=== PATIENT | male | born 1965 | race African-American/Black ===

== ENCOUNTER 2016-07-17 14:06 | Inpatient (IN) | payer OTHER ==
[2016-07-17 17:21] VITALS: BMI 32.5
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
[2016-07-17] MEDS ORDERED: ACETAMINOPHEN 325 MG TABLET (FP) PO PRN (20:25)
[2016-07-17] MEDS ORDERED: hydrOXYzine PAMOATE 50 MG CAPSULE (FP) PO PRN (20:25)
[2016-07-17] MEDS ORDERED: MAGNESIUM CITRATE 300 ML BOTTLE PO PRN (20:25)
[2016-07-17] MEDS ORDERED: LOPERAMIDE HCL 2 MG CAPSULE PO PRN (20:25)
[2016-07-17] MEDS ORDERED: IBUPROFEN 400 MG TABLET (FP) PO PRN (20:25)
[2016-07-17] MEDS ORDERED: MAG HYDROX/AL HYDROX/SIMETH 30 ML UNIT-DOSE CUP PO PRN (20:25)
[2016-07-17] MEDS: THIAMINE HCL 100 MG TABLET (FP) PO SCH (23:47)
[2016-07-18 01:53] LABS: URINE APPEARANCE CLEAR; URINE BILIRUBIN NEGATIVE (NEGATIVE); URINE BLOOD NEGATIVE (NEGATIVE); URINE COLOR LTYELLOW; URINE GLUCOSE (UA) NEGATIVE (NEGATIVE); URINE KETONE NEGATIVE (NEGATIVE); URINE LEUK ESTERASE NEGATIVE (NEGATIVE); URINE NITRITE NEGATIVE (NEGATIVE); URINE PROTEIN NEGATIVE (NEGATIVE); URINE UROBILINOGEN NEGATIVE E.U./dl (0.2-1.0)
[2016-07-18] MEDS: PRENATAL VITAMINS W/ FOLIC ACID TABLET (FP) PO SCH (10:11)
[2016-07-18] MEDS: NICOTINE 21 MG/24 HOURS TOPICAL PATCH TD SCH (10:11)
[2016-07-18 10:40] LABS: MCHC 34.2 g/dl (32.0-35.9); MEAN CELL VOLUME 96.4 fl (80-96); MEAN PLT VOLUME 8.4 fl (7.5-11.1); PLATELET COUNT 212 K/MM3 (134-434); RDW 14.2 % (11.9-15.9); WHITE BLOOD COUNT 7.6 K/mm3 (4.0-10.0)
[2016-07-18 11:09] LABS: ALBUMIN 3.6 g/dl (3.4-5.0); ALK PHOS 99 U/L (45-117); ANION GAP 9 (8-16); BILIRUBIN,TOTAL 0.6 mg/dL (0.2-1.0); CALCIUM 9.4 mg/dL (8.5-10.1); CO2 25 mmol/L (21-32); COCKROFT - GAULT 170.34; CREATININE 0.7 mg/dL (0.7-1.3); GLUCOSE,RANDOM 96 mg/dL (74-106); SGOT/AST 19 U/L (15-37); SGPT/ALT 33 U/L (12-78); TOT PROT 6.9 g/dl (6.4-8.2)
[2016-07-18 15:08] LABS: HIV 1 & 2 AB NEGATIVE; HIV 1 AGp24 NEGATIVE
[2016-07-18] MEDS: IBUPROFEN 400 MG TABLET (FP) PO PRN (20:14)
[2016-07-18] MEDS: diphenhydrAMINE HCL 50 MG CAPSULE PO PRN (21:29)
[2016-07-18] MEDS: THIAMINE HCL 100 MG TABLET (FP) PO SCH (21:29)
[2016-07-19] MEDS: IBUPROFEN 400 MG TABLET (FP) PO PRN ×2 (10:21→21:47)
[2016-07-19] MEDS: PRENATAL VITAMINS W/ FOLIC ACID TABLET (FP) PO SCH (10:22)
[2016-07-19] MEDS: NICOTINE 21 MG/24 HOURS TOPICAL PATCH TD SCH (10:23)
[2016-07-19] MEDS: THIAMINE HCL 100 MG TABLET (FP) PO SCH (21:47)
[2016-07-19] MEDS: diphenhydrAMINE HCL 50 MG CAPSULE PO PRN (21:48)
[2016-07-20] MEDS: PRENATAL VITAMINS W/ FOLIC ACID TABLET (FP) PO SCH (10:17)
[2016-07-20] MEDS: NICOTINE 21 MG/24 HOURS TOPICAL PATCH TD SCH (10:18)
[2016-07-20] MEDS: IBUPROFEN 400 MG TABLET (FP) PO PRN ×2 (10:19→22:00)
--- NOTE | 2016-07-20 11:30 | EKG ---
Test Reason : Blood Pressure : / mmHG Vent. Rate : 063 BPM Atrial Rate : 063 BPM P-R Int : 142 ms QRS Dur : 082 ms QT Int : 412 ms P-R-T Axes : 032 052 035 degrees QTc Int : 421 ms NORMAL SINUS RHYTHM NORMAL ECG NO PREVIOUS ECGS AVAILABLE Confirmed by BORA ROQUE MD ([id number]) on 07/20/2016 11:29:42 AM Referred By: Macarena De La O Confirmed By:BORA ROQUE MD
[2016-07-20] MEDS: THIAMINE HCL 100 MG TABLET (FP) PO SCH (21:59)
[2016-07-20] MEDS: diphenhydrAMINE HCL 50 MG CAPSULE PO PRN (21:59)
[2016-07-21] MEDS: NICOTINE 21 MG/24 HOURS TOPICAL PATCH TD SCH (10:33)
[2016-07-21] MEDS: PRENATAL VITAMINS W/ FOLIC ACID TABLET (FP) PO SCH (10:34)
[2016-07-21] MEDS: IBUPROFEN 400 MG TABLET (FP) PO PRN ×2 (10:35→21:48)
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
[2016-07-21] MEDS ORDERED: COLLOIDAL OATMEAL 1 BAR EACH TP PRN (11:53)
[2016-07-21] MEDS: THIAMINE HCL 100 MG TABLET (FP) PO SCH (21:46)
[2016-07-21] MEDS: diphenhydrAMINE HCL 50 MG CAPSULE PO PRN (21:47)
[2016-07-22] MEDS: PRENATAL VITAMINS W/ FOLIC ACID TABLET (FP) PO SCH (10:17)
[2016-07-22] MEDS: NICOTINE 21 MG/24 HOURS TOPICAL PATCH TD SCH (10:17)
[2016-07-22] MEDS: THIAMINE HCL 100 MG TABLET (FP) PO SCH (21:47)
[2016-07-22] MEDS: diphenhydrAMINE HCL 50 MG CAPSULE PO PRN (21:47)
[2016-07-22] MEDS: IBUPROFEN 400 MG TABLET (FP) PO PRN (21:48)
[2016-07-23] MEDS: PRENATAL VITAMINS W/ FOLIC ACID TABLET (FP) PO SCH (10:31)
[2016-07-23] MEDS: NICOTINE POLACRILEX 2 MG GUM BC PRN ×3 (10:31→21:52)
[2016-07-23] MEDS: IBUPROFEN 400 MG TABLET (FP) PO PRN ×2 (10:31→21:51)
[2016-07-23] MEDS: NICOTINE 21 MG/24 HOURS TOPICAL PATCH TD SCH (10:31)
[2016-07-23] MEDS: THIAMINE HCL 100 MG TABLET (FP) PO SCH (21:51)
[2016-07-23] MEDS: diphenhydrAMINE HCL 50 MG CAPSULE PO PRN (21:51)
[2016-07-24] MEDS: NICOTINE 21 MG/24 HOURS TOPICAL PATCH TD SCH (10:38)
[2016-07-24] MEDS: IBUPROFEN 400 MG TABLET (FP) PO PRN ×2 (10:38→21:57)
[2016-07-24] MEDS: PRENATAL VITAMINS W/ FOLIC ACID TABLET (FP) PO SCH (10:38)
[2016-07-24] MEDS: NICOTINE POLACRILEX 2 MG GUM BC PRN ×2 (10:39→21:59)
[2016-07-24] MEDS: THIAMINE HCL 100 MG TABLET (FP) PO SCH (21:56)
[2016-07-24] MEDS: diphenhydrAMINE HCL 50 MG CAPSULE PO PRN (21:56)
[2016-07-25] MEDS: MENTHOL/PHENOL 1 EACH UD MM PRN (04:15)
[2016-07-25] MEDS: IBUPROFEN 400 MG TABLET (FP) PO PRN ×2 (06:52→21:59)
[2016-07-25] MEDS: NICOTINE 21 MG/24 HOURS TOPICAL PATCH TD SCH (10:25)
[2016-07-25] MEDS: PRENATAL VITAMINS W/ FOLIC ACID TABLET (FP) PO SCH (10:25)
[2016-07-25] MEDS: diphenhydrAMINE HCL 50 MG CAPSULE PO PRN (21:58)
[2016-07-25] MEDS: THIAMINE HCL 100 MG TABLET (FP) PO SCH (21:58)
[2016-07-25] MEDS: NICOTINE POLACRILEX 2 MG GUM BC PRN (22:00)
[2016-07-26] MEDS: NICOTINE POLACRILEX 2 MG GUM BC PRN (06:03)
[2016-07-26] MEDS: IBUPROFEN 400 MG TABLET (FP) PO PRN (06:04)
[2016-07-26] MEDS: NICOTINE 21 MG/24 HOURS TOPICAL PATCH TD SCH (10:20)
[2016-07-26] MEDS: PRENATAL VITAMINS W/ FOLIC ACID TABLET (FP) PO SCH (10:20)
[2016-07-26] MEDS: THIAMINE HCL 100 MG TABLET (FP) PO SCH (21:57)
[2016-07-26] MEDS: diphenhydrAMINE HCL 50 MG CAPSULE PO PRN (21:57)
[2016-07-26] MEDS: MENTHOL/PHENOL 1 EACH UD MM PRN (23:37)
[2016-07-26] MEDS: P-EPHED 60MG/TRIPROLIDI 2.5MG TABLET PO PRN (23:46)
[2016-07-26] MEDS: guaiFENesin/D-METHORPHAN HB 10 ML UNIT-DOSE CUPS PO PRN (23:47)
[2016-07-27] MEDS: PRENATAL VITAMINS W/ FOLIC ACID TABLET (FP) PO SCH (10:29)
[2016-07-27] MEDS: NICOTINE 21 MG/24 HOURS TOPICAL PATCH TD SCH (10:29)
[2016-07-27] MEDS: NICOTINE POLACRILEX 2 MG GUM BC PRN ×2 (10:30→22:01)
[2016-07-27] MEDS: IBUPROFEN 400 MG TABLET (FP) PO PRN ×2 (10:30→21:58)
--- NOTE | 2016-07-27 10:57 | PN ---
[facility] Progress Note Note: edema both leg ad feet,no sob,no dizziness,no headache,lasiz 40 mgs po daily for 3 days
[2016-07-27] MEDS: FUROSEMIDE 40 MG TABLET (FP) PO SCH (12:10)
[2016-07-27] MEDS: guaiFENesin/D-METHORPHAN HB 10 ML UNIT-DOSE CUPS PO PRN ×2 (13:10→21:59)
[2016-07-27] MEDS: THIAMINE HCL 100 MG TABLET (FP) PO SCH (21:58)
[2016-07-27] MEDS: diphenhydrAMINE HCL 50 MG CAPSULE PO PRN (21:59)
[2016-07-27] MEDS: P-EPHED 60MG/TRIPROLIDI 2.5MG TABLET PO PRN (21:59)
[2016-07-28] MEDS: guaiFENesin/D-METHORPHAN HB 10 ML UNIT-DOSE CUPS PO PRN (04:20)
[2016-07-28] MEDS: P-EPHED 60MG/TRIPROLIDI 2.5MG TABLET PO PRN (05:25)
[2016-07-28] MEDS: IBUPROFEN 400 MG TABLET (FP) PO PRN ×2 (08:40→21:47)
[2016-07-28] MEDS: FUROSEMIDE 40 MG TABLET (FP) PO SCH (10:31)
[2016-07-28] MEDS: PRENATAL VITAMINS W/ FOLIC ACID TABLET (FP) PO SCH (10:31)
[2016-07-28] MEDS: NICOTINE 21 MG/24 HOURS TOPICAL PATCH TD SCH (10:31)
[2016-07-28] MEDS: THIAMINE HCL 100 MG TABLET (FP) PO SCH (21:47)
[2016-07-28] MEDS: diphenhydrAMINE HCL 50 MG CAPSULE PO PRN (21:47)
[2016-07-28] MEDS: MAGNESIUM HYDROX 2400MG/30ML ORAL SUSPENSION 30 ML CUP PO PRN (21:49)
[2016-07-29] MEDS: P-EPHED 60MG/TRIPROLIDI 2.5MG TABLET PO PRN (00:24)
[2016-07-29] MEDS: guaiFENesin/D-METHORPHAN HB 10 ML UNIT-DOSE CUPS PO PRN ×2 (00:24→06:01)
[2016-07-29] MEDS: PRENATAL VITAMINS W/ FOLIC ACID TABLET (FP) PO SCH (10:55)
[2016-07-29] MEDS: NICOTINE 21 MG/24 HOURS TOPICAL PATCH TD SCH (10:55)
[2016-07-29] MEDS: FUROSEMIDE 40 MG TABLET (FP) PO SCH (10:55)
[2016-07-29] MEDS: NICOTINE POLACRILEX 2 MG GUM BC PRN (10:56)
[2016-07-29] MEDS: diphenhydrAMINE HCL 50 MG CAPSULE PO PRN (21:54)
[2016-07-29] MEDS: THIAMINE HCL 100 MG TABLET (FP) PO SCH (21:54)
[2016-07-29] MEDS: MAGNESIUM HYDROX 2400MG/30ML ORAL SUSPENSION 30 ML CUP PO PRN (21:55)
[2016-07-30] MEDS: P-EPHED 60MG/TRIPROLIDI 2.5MG TABLET PO PRN (01:59)
[2016-07-30] MEDS: guaiFENesin/D-METHORPHAN HB 10 ML UNIT-DOSE CUPS PO PRN (01:59)
[2016-07-30 07:07] VITALS: BP 145/74; PULSE 69; TEMP 97.7
[2016-07-30] MEDS: NICOTINE 21 MG/24 HOURS TOPICAL PATCH TD SCH (10:46)
[2016-07-30] MEDS: PRENATAL VITAMINS W/ FOLIC ACID TABLET (FP) PO SCH (10:46)
--- NOTE | 2016-07-30 11:45 | PN ---
Psychiatric Progress Note Vital Signs: Vital Signs Period Temp Pulse Resp BP Sys/Morrison Pulse Ox Last 24 Hr 97.7 F 69 18-18 145/74 Date of Session: 07/30/16 Chief Complaint:: discharge visit HPI: Patient has addressed alcohol and nicotine dependence. ROS: WNL Current Medications: Active Medications Generic Name Dose Route Start Last Admin Trade Name Freq PRN Reason Stop Dose Admin Acetaminophen 650 mg 07/17/16 20:25 07/26/16 19:55 Tylenol - PO 650 mg Q4H PRN Administration PAIN Al Hydroxide/Mg Hydroxide 30 ml 07/17/16 20:25 Mylanta Oral Suspension - PO Q6H PRN DYSPEPSIA Colloidal Oatmeal 1 applic 07/21/16 11:53 07/21/16 15:39 Aveeno Soap - TP 1 bar DAILY PRN Administration HYGEINE Diphenhydramine HCl 50 mg 07/17/16 20:25 07/29/16 21:54 Benadryl - PO 50 mg HSMR1 PRN Administration INSOMNIA Eucalyptus/Menthol/Phenol/Sorbitol 1 each 07/17/16 20:25 07/26/16 23:37 Cepastat Lozenge - MM 1 each Q4H PRN Administration SORE THROAT Guaifenesin 10 ml 07/17/16 20:25 07/30/16 01:59 Robitussin Dm - PO 10 ml Q6H PRN Administration COUGH Hydroxyzine Pamoate 50 mg 07/17/16 20:25 Vistaril - PO Q4H PRN AGITATION Ibuprofen 800 mg 07/17/16 21:41 07/28/16 21:47 Motrin - PO 800 mg Q6H PRN Administration SEVERE PAIN Loperamide HCl 4 mg 07/17/16 20:25 Imodium - PO Q6H PRN DIARRHEA Magnesium Citrate 300 ml 07/17/16 20:25 Citroma - PO Q48H PRN CONSTIPATION Magnesium Hydroxide 30 ml 07/17/16 20:25 07/29/16 21:55 Milk Of Magnesia - PO 30 ml DAILY PRN Administration CONSTIPATION Nicotine 21 mg 07/18/16 10:00 07/30/16 10:46 Nicoderm Patch - TD Not Given DAILY ZHOU Nicotine Polacrilex 2 mg 07/17/16 20:25 07/29/16 10:56 Nicorette Gum - BC 2 mg Q2H PRN Administration NICOTINE REPLACEMENT RX Multivit/Folic Acid/Iron 1 tab 07/18/16 10:00 07/30/16 10:46 Vitamins (Sjr) - PO 1 tab DAILY ZHOU Administration Pseudoephedrine/Triprolidine 1 combo 07/17/16 20:25 07/29/16 00:24 Actifed - PO 1 combo TID PRN Administration NASAL CONGESTION Thiamine HCl 100 mg 07/17/16 22:00 07/29/16 21:54 Vitamin B1 - PO 100 mg HS ZHOU Administration Current Side Effect: No Lab tests ordered: No Lab tests reviewed: Yes Provider note:: Patient has completed today his treatment andmet his goals, he will continue to address his issues at [facility] outpatient treatment [facility]. Patient gained insights into his addiction and motivated to continue maintain abstinence. Patient is stable for discharge today. Total face to face time:: 15 Mental Status Exam - Mental Status Exam Alert and Oriented to: Time, Place, Person Cognitive Function: Good Patient Appearance: Well Groomed Mood: Hopeful Affect: Appropriate, Mood Congruent Patient Behavior: Appropriate, Cooperative Speech Pattern: Clear, Appropriate Voice Loudness: Normal Thought Process: Intact, Goal Oriented Thought Disorder: Not Present Hallucinations: Denies Suicidal Ideation: Denies Homicidal Ideation: Denies Insight/Judgement: Fair Sleep: Fair Appetite: Good Muscle strength/Tone: Normal Gait/Station: Normal Psychiatric Treatment Plan - Problem List (1) Nicotine dependence Current Visit: Yes (2) Alcohol dependence Current Visit: Yes Qualifiers: Substance use status: alcohol-induced mood disorder Qualified Code(s ): F10.24 - Alcohol dependence with alcohol-induced mood disorder
== END 2016-07-30 11:55 | disposition home or self-care (01) | DRG 772 ==
LOC: YASAS 14:06 → Y5N 18:35
PROVIDERS: ADMIT Psychiatry & Neurology Psychiatry; ATTEND Psychiatry & Neurology Psychiatry
PROC: HZ42ZZZ Group Counseling for Substance Abuse Treatment, Cognitive-Behavioral (ICD-10-PCS; principal; 2016-07-30)
DX: F10.20 Alcohol dependence, uncomplicated (principal); F17.210 Nicotine dependence, cigarettes, uncomplicated; F32.9 Major depressive disorder, single episode, unspecified
CPT/HCPCS: 36415; 80053; 81003; 85027; 86593; 87389; 93005; 93010